=== PATIENT | male | born 1970 | race Caucasian/White ===

== ENCOUNTER 2022-05-15 17:19 | Inpatient (IN) ==
[2022-05-15] MEDS ORDERED: 0.9 % Sodium Chloride 1,000 ML IVC ONE (17:37)
[2022-05-15 17:53] LABS: Basophils # 0.1 K/mcL (0.0-0.2); Basophils % 0.5 %; Eosinophils # 0.2 K/mcL (0.0-0.6); Eosinophils % 1.3 %; Hematocrit 48.5 % (37.5-50.1); Hemoglobin 16.2 g/dL (12.9-16.9); Immature Granulocytes % 0.6 % (0-4); Lymphocytes # 2.3 K/mcL (0.6-4.6); Lymphocytes % 13.5 %; Mean Corpuscular HGB Conc 33.4 g/dL (31.6-35.5); Mean Corpuscular Hemoglobin 30.5 pg (28.0-33.3); Mean Corpuscular Volume 91.2 fL (83.0-100.0); Mean Platelet Volume 9.2 fL (9.4-12.4); Monocytes # 1.5 K/mcL (0.0-1.3); Monocytes % 8.8 %; Neutrophils # 12.6 K/mcL (1.6-8.9); Platelet Count 272 K/mcL (140-400); Red Blood Count 5.32 M/mcL (4.19-5.50); Red Cell Distribution Width 13.4 % (11.5-14.5); Segmented Neutrophils % 75.3 %; White Blood Count 16.8 K/mcL (4.3-11.1)
[2022-05-15 18:10] LABS: BUN/Creatinine Ratio 14 (6-26); Blood Urea Nitrogen 18 mg/dL (6-20); Calcium 8.7 mg/dL (8.6-10.3); Carbon Dioxide 24 mEq/L (23-29); Chloride 101 mEq/L (98-107); Glucose 104 mg/dL (70-105); Osmolality,Calculated 278 (280-300); Potassium 4.1 mEq/L (3.5-5.1); Sodium 133 mEq/L (136-145); Troponin I < 0.03 ng/mL (< 0.04); eGFR For African Americans > 60 (> 60); eGFR For Non-African Americans 56 (> 60)
[2022-05-15] MEDS ORDERED: Iopamidol - 370 500 ML MLS IVP ONE (19:02)
[2022-05-15] MEDS ORDERED: Furosemide 40 MG/4 ML VIAL IVP ONE (19:13)
[2022-05-15] MEDS ORDERED: *HR* Norepinephrine 4 MG/4 ML VIAL IVC ONE (19:14)
[2022-05-15] MEDS ORDERED: 0.9 % Sodium Chloride 250 ML ONE (19:14)
[2022-05-15] MEDS: Norepinephrine 4 MG/254 ML IV.SOLN IVC SCH (19:21)
[2022-05-15] MEDS ORDERED: Morphine Sulfate 2 MG/ML SYRINGE IVP ONE (22:15)
[2022-05-16] MEDS: 0.9 % Sodium Chloride 1,000 ML IVC SCH ×2 (00:15→14:20)
[2022-05-16] MEDS ORDERED: Perflutren Lipid Microsphere 1.3 ML in 0.9 % Sodium Chloride 8.7 ML IVP PRN (01:05)
[2022-05-16 01:21] LABS: Bilirubin,Urine Negative (Negative); Blood,Urine Negative (Negative); Clarity,Urine Clear (Clear); Color,Urine Light-Yellow (Yellow); Glucose,Urine (UA) Normal (Normal); Ketones,Urine Negative (Negative); Leukocyte Esterase,Urine Negative (Negative); Nitrite,Urine Negative (Negative); PH,Urine 5.5 pH Units (5.0-8.0); Protein,Urine Negative (Neg-Trace); Specific Gravity,Urine > 1.030 (1.010-1.025); Urobilinogen,Urine Normal (Normal)
[2022-05-16] MEDS ORDERED: 0.9 % Sodium Chloride 1,000 ML IVC ONE (01:21)
[2022-05-16] MEDS ORDERED: 0.9 % Sodium Chloride 500 ML IVC ONE (01:23)
[2022-05-16 01:37] LABS: Amphetamine Screen,Urine Negative ng/mL (Cutoff=1000); Barbiturate Screen,Urine Negative ng/mL (Cutoff=200); Benzodiazepines Screen,Urine Negative ng/mL (Cutoff=200); Cannabinoid Screen,Urine Negative ng/mL (Cutoff = 50); Cocaine Screen,Urine Negative ng/mL (Cutoff= 300); Opiate Screen,Urine Positive ng/mL (Cutoff=300); Phencyclidine Screen,Urine Negative ng/mL (Cutoff=25)
[2022-05-16] MEDS ORDERED: GI Cocktail 40 ML EACH PO ONE (01:50)
[2022-05-16 02:01] LABS: Albumin 4.4 g/dL (3.5-5.7); Albumin/Globulin Ratio 1.4 (1.1-2.2); Bilirubin,Direct 0.4 mg/dL (0.0-0.2); Bilirubin,Indirect 1.9 mg/dL (0.0-1.0); Bilirubin,Total 2.3 mg/dL (0.3-1.0); Globulin 3.1 g/dL (2.4-3.5); Total Protein 7.5 g/dL (6.4-8.9)
[2022-05-16] MEDS: Piperacillin/Tazobactam 3.375 GM in 0.9 % Sodium Chloride Mini Bag 100 ML IVPB SCH ×3 (02:04→17:25)
[2022-05-16] MEDS: Ketorolac 30 MG/ML VIAL IVP SCH ×3 (02:29→14:08)
[2022-05-16 04:42] LABS: Creatinine,Urine 101 mg/dL; Sodium, Urine 19.2 mEq/L
[2022-05-16 05:49] LABS: Troponin I 0.03 ng/mL (< 0.04)
[2022-05-16 06:10] LABS: Thyroid Stimulating Hormone 5.864 mcIU/mL (0.340-5.600)
[2022-05-16 06:38] LABS: Adenovirus Not Detected (Not Detect); Bordetella Pertussis Not Detected (Not Detect); Chlamydophila pneumoniae Not Detected (Not Detect); Coronavirus 229E Not Detected (Not Detect); Coronavirus HKU1 Not Detected (Not Detect); Coronavirus NL63 Not Detected (Not Detect); Coronavirus OC43 Not Detected (Not Detect); Human Metapneumovirus Not Detected (Not Detect); Human Rhinovirus/Enterovirus Not Detected (Not Detect); Influenza A Subtype 2009 H1 Not Detected (Not Detect); Influenza B Not Detected (Not Detect); Mycoplasma pneumoniae Not Detected (Not Detect); Parainfluenza Virus 1 Not Detected (Not Detect); Parainfluenza Virus 2 Not Detected (Not Detect); Parainfluenza Virus 3 Not Detected (Not Detect); Parainfluenza Virus 4 Not Detected (Not Detect); Respiratory Syncytial Virus Not Detected (Not Detect); SARS-CoV-2 Not Detected (Not Detect)
[2022-05-16] MEDS: Norepinephrine 4 MG/254 ML IV.SOLN IVC SCH (08:41)
[2022-05-16] MEDS ORDERED: Pantoprazole 40 MG VIAL IVP ONE (09:15)
[2022-05-16 13:52] LABS: Creatine Kinase 77 Units/L (30-223); Troponin I < 0.03 ng/mL (< 0.04)
[2022-05-16] MEDS ORDERED: *HR* Heparin 5,000 UNIT/ML VIAL IVP ONE (14:04)
[2022-05-16] MEDS ORDERED: *HR* Heparin 5,000 UNIT/ML VIAL IVP PRN ×2 (14:04)
[2022-05-16] MEDS: *HR* Heparin 5,000 UNIT/ML VIAL SQ SCH ×2 (14:09→20:08)
[2022-05-16] MEDS ORDERED: ALPRAZolam 0.25 MG TABLET PO ONE ×2 (14:22→21:00)
[2022-05-16] MEDS ORDERED: ALPRAZolam 0.25 MG TABLET PO PRN (14:52)
[2022-05-16 16:32] LABS: Hematocrit 49.9 % (37.5-50.1); Hemoglobin 16.5 g/dL (12.9-16.9); Mean Corpuscular HGB Conc 33.1 g/dL (31.6-35.5); Mean Corpuscular Hemoglobin 30.6 pg (28.0-33.3); Mean Corpuscular Volume 92.6 fL (83.0-100.0); Mean Platelet Volume 9.1 fL (9.4-12.4); Platelet Count 277 K/mcL (140-400); Red Blood Count 5.39 M/mcL (4.19-5.50); Red Cell Distribution Width 13.9 % (11.5-14.5); White Blood Count 21.4 K/mcL (4.3-11.1)
[2022-05-16 16:41] LABS: Heparin anti-factor XA UFH < 0.04 IU/mL (0.30-0.70)
[2022-05-16 16:42] LABS: INR 1.3; Prothrombin Time 14.1 Seconds (9.4-12.1)
[2022-05-16] MEDS: Heparin 25,000UNIT/250ML 1/2NS 25,000 UNIT/250 ML IV.SOLN IVC SCH (16:59)
[2022-05-16] MEDS ORDERED: 0.9 % Sodium Chloride 1,000 ML IVC SCH (17:45)
[2022-05-16] MEDS: Pantoprazole 40 MG VIAL IVP SCH (20:53)
[2022-05-17] MEDS ORDERED: Morphine Sulfate 2 MG/ML SYRINGE IVP ONE (00:12)
[2022-05-17 04:41] LABS: Basophils # 0.1 K/mcL (0.0-0.2); Basophils % 0.5 %; Eosinophils % 0.1 %; Hematocrit 47.6 % (37.5-50.1); Hemoglobin 15.6 g/dL (12.9-16.9); Immature Granulocytes % 1.5 % (0-4); Lymphocytes # 3.9 K/mcL (0.6-4.6); Lymphocytes % 17.8 %; Mean Corpuscular HGB Conc 32.8 g/dL (31.6-35.5); Mean Corpuscular Hemoglobin 30.3 pg (28.0-33.3); Mean Corpuscular Volume 92.4 fL (83.0-100.0); Mean Platelet Volume 9.4 fL (9.4-12.4); Monocytes % 9.4 %; Neutrophils # 15.3 K/mcL (1.6-8.9); Platelet Count 276 K/mcL (140-400); Red Blood Count 5.15 M/mcL (4.19-5.50); Red Cell Distribution Width 13.8 % (11.5-14.5); Segmented Neutrophils % 70.7 %; White Blood Count 21.7 K/mcL (4.3-11.1)
[2022-05-17 05:19] LABS: Alanine Aminotransferase 778 Units/L (7-52); Albumin 3.5 g/dL (3.5-5.7); Albumin/Globulin Ratio 1.5 (1.1-2.2); Alkaline Phosphatase 72 Units/L (34-104); Aspartate Amino Transferase 724 Units/L (13-39); BUN/Creatinine Ratio 14 (6-26); Bilirubin,Total 3.2 mg/dL (0.3-1.0); Blood Urea Nitrogen 20 mg/dL (6-20); Calcium 7.8 mg/dL (8.6-10.3); Carbon Dioxide 19 mEq/L (23-29); Chloride 103 mEq/L (98-107); Chol/HDL Ratio 2.6 (0-4.9); Cholesterol 119 mg/dL (< 200); Globulin 2.4 g/dL (2.4-3.5); Glucose 114 mg/dL (70-105); HDL Cholesterol 45 mg/dL (40-59); LDL Cholesterol,Calculated 62 mg/dL (< 100); Osmolality,Calculated 273 (280-300); Potassium 4.8 mEq/L (3.5-5.1); Sodium 130 mEq/L (136-145); Total Protein 5.9 g/dL (6.4-8.9); Triglycerides 60 mg/dL (< 150); eGFR For African Americans > 60 (> 60); eGFR For Non-African Americans 53 (> 60)
[2022-05-17] MEDS: *HR* Heparin 5,000 UNIT/ML VIAL SQ SCH (06:43)
[2022-05-17] MEDS: Pantoprazole 40 MG VIAL IVP SCH (06:44)
[2022-05-17] MEDS: Piperacillin/Tazobactam 3.375 GM in 0.9 % Sodium Chloride Mini Bag 100 ML IVPB SCH ×3 (06:44→17:43)
[2022-05-17 09:38] LABS: Bilirubin,Urine Negative (Negative); Blood,Urine Negative (Negative); Clarity,Urine Clear (Clear); Color,Urine Yellow (Yellow); Glucose,Urine (UA) Normal (Normal); Ketones,Urine Trace mg/dL (Negative); Leukocyte Esterase,Urine Negative (Negative); Nitrite,Urine Negative (Negative); Protein,Urine Trace mg/dL (Neg-Trace); Specific Gravity,Urine 1.017 (1.010-1.025); Urobilinogen,Urine Normal (Normal)
[2022-05-17] MEDS ORDERED: Furosemide 20 MG/2 ML VIAL IVP ONE (09:44)
[2022-05-17] MEDS ORDERED: Levalbuterol Neb 1.25 MG/3 ML ONE (09:46)
[2022-05-17] MEDS: Norepinephrine 4 MG/254 ML IV.SOLN IVC SCH (09:51)
[2022-05-17] MEDS: Levalbuterol 1 PUFF INHALER IH SCH ×3 (09:58→22:25)
[2022-05-17] MEDS: Heparin 25,000UNIT/250ML 1/2NS 25,000 UNIT/250 ML IV.SOLN IVC SCH (12:59)
[2022-05-17] MEDS ORDERED: Temazepam 15 MG CAPSULE PO SCH (21:00)
[2022-05-18] MEDS: Piperacillin/Tazobactam 3.375 GM in 0.9 % Sodium Chloride Mini Bag 100 ML IVPB SCH (02:12)
[2022-05-18] MEDS: Levalbuterol 1 PUFF INHALER IH SCH (03:47)
[2022-05-18 05:03] VITALS: BP 87/65
[2022-05-18 05:12] LABS: Basophils # 0.2 K/mcL (0.0-0.2); Basophils % 0.9 %; Eosinophils # 0.2 K/mcL (0.0-0.6); Eosinophils % 1.3 %; Hematocrit 44.3 % (37.5-50.1); Hemoglobin 14.6 g/dL (12.9-16.9); Immature Granulocytes % 1.4 % (0-4); Lymphocytes # 4.5 K/mcL (0.6-4.6); Mean Corpuscular Hemoglobin 30.5 pg (28.0-33.3); Mean Corpuscular Volume 92.5 fL (83.0-100.0); Mean Platelet Volume 9.6 fL (9.4-12.4); Monocytes # 1.3 K/mcL (0.0-1.3); Monocytes % 7.6 %; Neutrophils # 10.3 K/mcL (1.6-8.9); Platelet Count 206 K/mcL (140-400); Red Blood Count 4.79 M/mcL (4.19-5.50); Red Cell Distribution Width 14.1 % (11.5-14.5); Segmented Neutrophils % 61.8 %; White Blood Count 16.7 K/mcL (4.3-11.1)
[2022-05-18 05:15] LABS: VBG Ionized Calcium 1.08 mmol/L (1.15-1.35)
[2022-05-18 05:58] LABS: Alanine Aminotransferase 655 Units/L (7-52); Albumin 3.2 g/dL (3.5-5.7); Albumin/Globulin Ratio 1.2 (1.1-2.2); Alkaline Phosphatase 74 Units/L (34-104); Aspartate Amino Transferase 372 Units/L (13-39); BUN/Creatinine Ratio 15 (6-26); Bilirubin,Total 1.2 mg/dL (0.3-1.0); Blood Urea Nitrogen 20 mg/dL (6-20); Calcium 8.1 mg/dL (8.6-10.3); Carbon Dioxide 23 mEq/L (23-29); Chloride 104 mEq/L (98-107); Globulin 2.6 g/dL (2.4-3.5); Glucose 93 mg/dL (70-105); Magnesium 1.9 mg/dL (1.6-2.6); Osmolality,Calculated 280 (280-300); Phosphorous 2.2 mg/dL (2.7-4.5); Potassium 3.9 mEq/L (3.5-5.1); Sodium 134 mEq/L (136-145); Total Protein 5.8 g/dL (6.4-8.9); eGFR For African Americans > 60 (> 60); eGFR For Non-African Americans 56 (> 60)
[2022-05-18 06:10] VITALS: PULSE 88; O2SAT 95
[2022-05-18 07:48] VITALS: TEMP 97.7
[2022-05-18] MEDS ORDERED: Pantoprazole 40 MG VIAL IVP SCH (09:00)
== END 2022-05-18 08:16 | disposition short-term general hospital (02) | DRG 871 ==
LOC: ICNU 17:19 → EMEROOARM 17:19 → ICNU 23:53
PROVIDERS: ADMIT Internal Medicine; ATTEND Internal Medicine